=== PATIENT | male | born 1940 | race African-American/Black ===

== ENCOUNTER 2018-04-15 11:02 | Emergency (ER) | payer MEDICARE ==
[~2018-04-15] VITALS: Ht 170.2 cm; Wt 64.0 kg
[~2018-04-15 11:02] MED LIST: METF-414 PO; ROSU10TA PO
[2018-04-15] MEDS ORDERED: NAPROXEN 375MG TABLET PO ONE (11:45)
[2018-04-15 13:40] VITALS: BP 143/73
== END 2018-04-15 14:19 | disposition home or self-care (01) ==
LOC: ER 11:57
DX: M17.0 Bilateral primary osteoarthritis of knee (principal); I10 Essential (primary) hypertension; Z88.5 Allergy status to narcotic agent; M11.261 Other chondrocalcinosis, right knee
CPT/HCPCS: 73560; 99284

== ENCOUNTER → 2020-04-14 | Outpatient (CLI) | payer MEDICARE ==
[~2020-04-14] MED LIST changes: +ASPI-1497 PO; +CRES10 PO; +GLIP5TAB12 PO; +LATA2.5D2 EACHEYE; +METF-414 MT; +METF750T46 MT; -ROSU10TA PO; +TIMO5DRO32 EACHEYE
== END | disposition home or self-care (01) ==
LOC: LAB 09:19
PROVIDERS: ATTEND Specialist
DX: Z01.812 Encounter for preprocedural laboratory examination (principal); R05 Cough; Z20.828 Contact with and (suspected) exposure to other viral communicable diseases
CPT/HCPCS: C9803; U0003

== ENCOUNTER 2020-04-15 06:09 | Day surgery (SDC) | payer MEDICARE ==
[~2020-04-15 06:09] MED LIST changes: -ASPI-1497 PO; -GLIP5TAB12 PO; -LATA2.5D2 EACHEYE; -METF-414 MT; -METF750T46 MT; -TIMO5DRO32 EACHEYE
[2020-04-15] MEDS ORDERED: GLIP5TAB12 PO (07:48)
[2020-04-15] MEDS ORDERED: METF750T46 MT (07:48)
[2020-04-15] MEDS ORDERED: ASPI-1497 PO (07:48)
[2020-04-15] MEDS ORDERED: METF-414 MT (07:48)
[2020-04-15] MEDS ORDERED: TIMO5DRO32 EACHEYE (07:49)
[2020-04-15] MEDS ORDERED: LATA2.5D2 EACHEYE (07:49)
[2020-04-15] MEDS ORDERED: ASPIRIN/SOD BICARB/CITRIC ACID 324MG TAB EFF ONE (08:52)
[2020-04-15] MEDS ORDERED: LIDOCAINE HCL 1% 20ML VIAL (Pyxis) INJ ONE (08:53)
[2020-04-15] MEDS ORDERED: MIDAZOLAM HCL 2 MG/2 ML VIAL ONE (08:54)
[2020-04-15] MEDS ORDERED: FENTANYL CITRATE/PF 50MCG/ML 2ML VIAL ONE (08:54)
[2020-04-15] MEDS ORDERED: IODIXANOL 320MG/ML 100 ML BOTTLE IV ONE (08:54)
[2020-04-15] MEDS ORDERED: ACETAMINOPHEN 325MG TABLET PO PRN (10:30)
[2020-04-15] MEDS ORDERED: ATROPINE SULFATE 1MG/10ML SYR IV PRN (10:30)
[2020-04-15] MEDS ORDERED: ONDANSETRON HCL 4MG/2ML INJ IV PRN (10:30)
[2020-04-15] MEDS ORDERED: MORPHINE SULFATE 2 MG/ML CPJ (NOT FOR IM USE) IV PRN (10:30)
[2020-04-15] MEDS ORDERED: HEPARIN SODIUM 1,000 UNIT/1ML VIAL IV ONE (12:00)
[2020-04-15] MEDS ORDERED: NITROGLYCERIN 50MCG/ML 10ML VIAL (CATH LAB) IV ONE (12:00)
[2020-04-15] MEDS ORDERED: NICARDIPINE 100MCG/ML 10ML VIAL (CATH LAB) IV ONE (12:00)
[2020-04-15] MEDS ORDERED: AMLODIPINE 2.5MG TABLET PO NR (13:15)
== END 2020-04-15 15:30 | disposition home or self-care (01) ==
LOC: CCL 06:09
PROVIDERS: ATTEND Specialist
DX: I25.10 Atherosclerotic heart disease of native coronary artery without angina pectoris (principal); I10 Essential (primary) hypertension; E78.5 Hyperlipidemia, unspecified; E11.9 Type 2 diabetes mellitus without complications; Z79.82 Long term (current) use of aspirin; Z79.84 Long term (current) use of oral hypoglycemic drugs; Z79.899 Other long term (current) drug therapy; Z98.890 Other specified postprocedural states
CPT/HCPCS: 82962; 93458; C1769; C1887; C1893; J1644; J2250; J3010; J3490; Q9967; 99152; 99153; G0500

== ENCOUNTER 2021-07-10 12:00 | Inpatient (IN) | payer MEDICARE ==
[~2021-07-10] VITALS: Ht 170.2 cm; Wt 66.7 kg
[~2021-07-10 12:00] MED LIST changes: +ASPI-1497 PO; +GLIP5TAB12 PO; +LATA2.5D14 EACHEYE; +METF-414 MT; +METF750T46 MT; +TIMO5DRO32 EACHEYE
[2021-07-10 13:16] LABS: BASOPHILS % 1.2 % (0.0-2.0); EOSINOPHILS % 6.9 % (0.0-5.0); HEMATOCRIT. 22.5 % (42.0-52.0); HEMOGLOBIN. 7.4 g/dL (14.0-18.0); LYMPHOCYTES % 21.4 % (20.0-50.0); MEAN CORPUSCULAR HEMOGLOBIN 27.3 pg (28.0-32.0); MEAN CORPUSCULAR VOLUME 83.5 fL (80.0-94.0); MEAN PLATELET VOLUME 6.8 fl (7.4-10.4); MONOCYTES % 14.7 % (2.0-8.0); NEUTROPHILS % 55.8 % (40.0-76.0); PLATELET 323 x1000/uL (130-400); RED CELL DISTRIBUTION WIDTH 15.7 % (11.6-14.6)
[2021-07-10 13:20] LABS: CHLORIDE 108 mEq/L (98-107)
[2021-07-10 13:24] LABS: PROTHROMBIN TIME 10.8 sec (9.6-11.0)
[2021-07-10 13:29] LABS: TOTAL IRON BINDING CAPACITY 408 ug/dL (250-450)
[2021-07-10] MEDS ORDERED: VENOFER XX SCH (15:00)
[2021-07-10] MEDS ORDERED: PANTOPRAZOLE SODIUM 40 MG/VIAL IV ONE (15:45)
[2021-07-10] MEDS ORDERED: SODIUM CHLORIDE 0.9% 500 ML IV ONE (15:45)
[2021-07-10 16:40] LABS: CREATINE KINASE 210 IU/L (39-308)
[2021-07-10 16:41] LABS: CREATINE KINASE MB FRACTION 1.9 ng/mL (0.5-3.6)
[2021-07-10 16:51] LABS: FOLIC ACID (FOLATE) SERUM 15.9 ng/mL (>5.38)
[2021-07-10] MEDS: PANTOPRAZOLE SODIUM 40 MG/VIAL IV SCH ×2 (16:52→21:00)
[2021-07-10] MEDS: IRON SUCROSE COMPLEX 100 MG/5 ML ML IV SCH (16:53)
[2021-07-10] MEDS: EPOETIN ALFA-EPBX 10,000 UNIT/ML VIAL SUBCUT SCH (21:00)
[2021-07-10 22:45] LABS: CLARITY URINE CLEAR (CLEAR); COLOR URINE YELLOW (YELLOW); KETONES URINE NEGATIVE (NEGATIVE); LEUKOCYTE ESTERASE URINE 3+ (NEGATIVE); NITRITE URINE NEGATIVE (NEGATIVE); OCCULT BLOOD URINE NEGATIVE (NEGATIVE); PH URINE 6.5 (4.5-8.0); PROTEIN URINE NEGATIVE (NEGATIVE); SPECIFIC GRAVITY URINE 1.009 (1.005-1.030); UROBILINOGEN URINE 0.2 E.U./dL (0.2-1.0)
[2021-07-11 05:07] LABS: MEAN CORPUSCULAR HEMOGLOBIN 28.2 pg (28.0-32.0); MEAN CORPUSCULAR VOLUME 83.2 fL (80.0-94.0); MEAN PLATELET VOLUME 7.3 fl (7.4-10.4); PLATELET 285 x1000/uL (130-400); RED BLOOD CELL COUNT 2.37 mill/uL (4.7-6.1); RED CELL DISTRIBUTION WIDTH 15.8 % (11.6-14.6)
[2021-07-11 05:24] LABS: HEMOGLOBIN. 6.7 g/dL (14.0-18.0)
[2021-07-11 05:25] LABS: HEMATOCRIT. 19.7 % (42.0-52.0)
[2021-07-11] MEDS ORDERED: AMLO5TAB88 MT (06:44)
[2021-07-11] MEDS ORDERED: PIOG15TA68 MT (06:44)
[2021-07-11] MEDS ORDERED: CLOP75TA33 MT (06:44)
[2021-07-11] MEDS ORDERED: ATOR80TA MT (06:44)
[2021-07-11] MEDS ORDERED: METO-396 MT (06:44)
[2021-07-11] MEDS ORDERED: GLIP5TAB12 MT (06:44)
[2021-07-11] MEDS ORDERED: [UNRECOGNIZED DRUG - OTHER] PO (06:44)
[2021-07-11] MEDS ORDERED: METF-415 MT (06:44)
[2021-07-11 07:00] VITALS: BP 127/52
[2021-07-11 07:27] LABS: PLATELET ESTIMATE NORMAL
[2021-07-11 08:00] VITALS: BP 127/52
[2021-07-11] MEDS: IRON SUCROSE COMPLEX 100 MG/5 ML ML IV SCH (09:37)
[2021-07-11] MEDS: PANTOPRAZOLE SODIUM 40 MG/VIAL IV SCH ×2 (09:37→17:00)
[2021-07-11 12:00] VITALS: BP 147/60
[2021-07-11] MEDS ORDERED: ACETAMINOPHEN 650MG SUPP PR PRN (12:00)
[2021-07-11] MEDS ORDERED: DIPHENHYDRAMINE 50MG/ML VIAL IV PRN (12:00)
[2021-07-11] MEDS ORDERED: LORAZEPAM 2MG/ML CPJ IV PRN (12:00)
[2021-07-11] MEDS ORDERED: ACETAMINOPHEN 325MG TABLET PO PRN (12:00)
[2021-07-11] MEDS ORDERED: BISACODYL 10MG SUPP PR PRN (12:00)
[2021-07-11] MEDS ORDERED: DEXTROSE 50% WATER 50ML SYRINGE IV PRN (12:00)
[2021-07-11] MEDS ORDERED: IPRATROPIUM/ALBUTEROL 0.5-3(2.5)MG/3ML NEB HHN PRN (12:00)
[2021-07-11] MEDS: BLOOD SUGAR DIAGNOSTIC STRIP TEST SCH ×3 (13:07→21:44)
[2021-07-11] MEDS: INSULIN LISPRO 100 UNITS/ML SUBCUT SCH ×3 (13:30→21:43)
[2021-07-11] MEDS: CEFTRIAXONE 1,000 MG in DEXTROSE 5% WATER 50 ML IV SCH (15:10)
[2021-07-11 16:00] VITALS: BP 143/62
[2021-07-11 20:00] VITALS: BP 110/62
[2021-07-11] MEDS: EPOETIN ALFA-EPBX 10,000 UNIT/ML VIAL SUBCUT SCH (21:43)
[2021-07-12] VITALS: BP 103/52
[2021-07-12 04:00] VITALS: BP 132/60
[2021-07-12] MEDS: BLOOD SUGAR DIAGNOSTIC STRIP TEST SCH ×4 (07:20→21:44)
[2021-07-12] MEDS: INSULIN LISPRO 100 UNITS/ML SUBCUT SCH ×4 (07:50→21:00)
[2021-07-12 07:51] LABS: BASOPHILS % 1.3 % (0.0-2.0); EOSINOPHILS % 6.2 % (0.0-5.0); LYMPHOCYTES % 15.1 % (20.0-50.0); MEAN CORPUSCULAR HEMOGLOBIN 27.3 pg (28.0-32.0); MEAN CORPUSCULAR VOLUME 83.8 fL (80.0-94.0); MEAN PLATELET VOLUME 7.2 fl (7.4-10.4); MONOCYTES % 14.8 % (2.0-8.0); NEUTROPHILS % 62.6 % (40.0-76.0); PLATELET 315 x1000/uL (130-400); RED BLOOD CELL COUNT 2.42 mill/uL (4.7-6.1); RED CELL DISTRIBUTION WIDTH 15.5 % (11.6-14.6)
[2021-07-12 08:00] VITALS: BP 131/52
[2021-07-12 08:09] LABS: HEMOGLOBIN. 6.6 g/dL (14.0-18.0)
[2021-07-12 08:10] LABS: HEMATOCRIT. 20.3 % (42.0-52.0)
[2021-07-12] MEDS: PANTOPRAZOLE SODIUM 40 MG/VIAL IV SCH ×2 (09:24→17:00)
[2021-07-12] MEDS: BISACODYL 5MG TABLET PO SCH (09:24)
[2021-07-12] MEDS: IRON SUCROSE COMPLEX 100 MG/5 ML ML IV SCH (09:24)
[2021-07-12] MEDS: SORBITOL 70% SOLN 30ML PO SCH (09:25)
[2021-07-12] MEDS: NA PHOS,M-B/NA PHOS,DI-BA ENEMA 118ML PR SCH ×2 (10:32→18:31)
[2021-07-12] MEDS: AMLODIPINE 5MG TABLET PO SCH (15:40)
[2021-07-12] MEDS: CEFTRIAXONE 1,000 MG in DEXTROSE 5% WATER 50 ML IV SCH (15:41)
[2021-07-12 20:18] VITALS: BP 130/64
[2021-07-12] MEDS: EPOETIN ALFA-EPBX 10,000 UNIT/ML VIAL SUBCUT SCH (21:44)
[2021-07-13 00:48] VITALS: BP 105/44
[2021-07-13 04:20] VITALS: BP 126/61
[2021-07-13 06:58] LABS: HEMATOCRIT. 23.6 % (42.0-52.0); HEMOGLOBIN. 7.9 g/dL (14.0-18.0); MEAN CORPUSCULAR HEMOGLOBIN 28.2 pg (28.0-32.0); MEAN CORPUSCULAR VOLUME 83.8 fL (80.0-94.0); MEAN PLATELET VOLUME 7.4 fl (7.4-10.4); PLATELET 355 x1000/uL (130-400); RED BLOOD CELL COUNT 2.82 mill/uL (4.7-6.1); RED CELL DISTRIBUTION WIDTH 15.7 % (11.6-14.6)
[2021-07-13] MEDS: INSULIN LISPRO 100 UNITS/ML SUBCUT SCH ×4 (07:50→21:23)
[2021-07-13 07:53] LABS: PLATELET ESTIMATE NORMAL
[2021-07-13 08:00] VITALS: BP 131/62
[2021-07-13] MEDS: BISACODYL 5MG TABLET PO SCH (09:30)
[2021-07-13] MEDS: PANTOPRAZOLE SODIUM 40 MG/VIAL IV SCH ×2 (09:31→17:56)
[2021-07-13] MEDS: SORBITOL 70% SOLN 30ML PO SCH ×2 (09:31→20:54)
[2021-07-13] MEDS: AMLODIPINE 5MG TABLET PO SCH ×2 (09:31→17:00)
[2021-07-13] MEDS ORDERED: LATA2.5D14 EACHEYE (09:47)
[2021-07-13] MEDS ORDERED: DORZ10DR12 EACHEYE (09:47)
[2021-07-13] MEDS: NA PHOS,M-B/NA PHOS,DI-BA ENEMA 118ML PR SCH ×2 (10:01→17:56)
[2021-07-13] MEDS ORDERED: TAMSULOSIN HCL 0.4MG SR CAPSULE PO NR (10:15)
[2021-07-13 12:00] VITALS: BP 125/60
[2021-07-13] MEDS: BLOOD SUGAR DIAGNOSTIC STRIP TEST SCH ×3 (12:41→20:55)
[2021-07-13] MEDS ORDERED: BISACODYL 10MG SUPP PR SCH (13:45)
[2021-07-13 14:04] LABS: PROSTRATE SPECIFIC AG TOTAL 3.05 ng/mL (0.0-4.0)
[2021-07-13] MEDS: CEFTRIAXONE 1,000 MG in DEXTROSE 5% WATER 50 ML IV SCH (14:37)
[2021-07-13 14:48] LABS: TOTAL IRON BINDING CAPACITY 395 ug/dL (250-450)
[2021-07-13 16:00] VITALS: BP 106/58
[2021-07-13 20:00] VITALS: BP 122/69
[2021-07-13] MEDS: LATANOPROST 0.005% OPHTH DROPS 2.5ML BOTHEYE SCH (20:54)
[2021-07-13] MEDS: DORZOLAM/TIMOLOL 2.23/0.68% OPHTH DROPS 10ML BOTHEYE SCH (20:54)
[2021-07-13] MEDS: EPOETIN ALFA-EPBX 10,000 UNIT/ML VIAL SUBCUT SCH (21:15)
[2021-07-14] VITALS: BP 130/72
[2021-07-14 04:00] VITALS: BP 140/63
[2021-07-14] MEDS: SORBITOL 70% SOLN 30ML PO SCH ×2 (05:33→09:23)
[2021-07-14] MEDS: BLOOD SUGAR DIAGNOSTIC STRIP TEST SCH ×4 (07:25→18:20)
[2021-07-14] MEDS: INSULIN LISPRO 100 UNITS/ML SUBCUT SCH ×4 (07:25→21:00)
[2021-07-14 08:00] VITALS: BP 141/69
[2021-07-14] MEDS: NA PHOS,M-B/NA PHOS,DI-BA ENEMA 118ML PR SCH ×2 (09:00→17:00)
[2021-07-14] MEDS: BISACODYL 5MG TABLET PO SCH (09:00)
[2021-07-14] MEDS: TAMSULOSIN HCL 0.4MG SR CAPSULE PO SCH (09:00)
[2021-07-14] MEDS: PANTOPRAZOLE SODIUM 40 MG/VIAL IV SCH ×2 (09:23→17:00)
[2021-07-14] MEDS: AMLODIPINE 5MG TABLET PO SCH ×2 (09:23→17:00)
[2021-07-14] MEDS: DORZOLAM/TIMOLOL 2.23/0.68% OPHTH DROPS 10ML BOTHEYE SCH ×2 (09:23→20:52)
[2021-07-14 12:00] VITALS: BP 129/62
[2021-07-14] MEDS: CEFTRIAXONE 1,000 MG in DEXTROSE 5% WATER 50 ML IV SCH (13:38)
[2021-07-14 14:11] LABS: HEMATOCRIT. 27.3 % (42.0-52.0); HEMOGLOBIN. 8.8 g/dL (14.0-18.0); MEAN CORPUSCULAR HEMOGLOBIN 27.7 pg (28.0-32.0); MEAN PLATELET VOLUME 6.8 fl (7.4-10.4); PLATELET 375 x1000/uL (130-400); RED BLOOD CELL COUNT 3.17 mill/uL (4.7-6.1); RED CELL DISTRIBUTION WIDTH 15.9 % (11.6-14.6)
[2021-07-14 14:20] LABS: CHLORIDE 117 mEq/L (98-107)
[2021-07-14 14:30] LABS: PROTHROMBIN TIME 11.1 sec (9.6-11.0)
[2021-07-14 15:06] LABS: NUCLEATED RED BLOOD CELLS 2 /100 WBC; PLATELET ESTIMATE NORMAL
[2021-07-14 16:00] VITALS: BP 109/56
[2021-07-14] MEDS ORDERED: MIDAZOLAM HCL 2 MG/2 ML VIAL ONE (17:17)
[2021-07-14] MEDS ORDERED: PROPOFOL 200MG/20ML VIAL IV ONE ×2 (17:18→17:52)
[2021-07-14] MEDS ORDERED: LIDOCAINE HCL/PF 1% 10 MG/ML 5ML VIAL ONE (17:18)
[2021-07-14 20:00] VITALS: BP 154/56
[2021-07-14] MEDS: LATANOPROST 0.005% OPHTH DROPS 2.5ML BOTHEYE SCH (20:53)
[2021-07-14] MEDS: EPOETIN ALFA-EPBX 10,000 UNIT/ML VIAL SUBCUT SCH (20:54)
[2021-07-15] VITALS: BP 121/53
[2021-07-15 04:00] VITALS: BP 151/54
[2021-07-15 07:22] LABS: BASOPHILS % 0.3 % (0.0-2.0); EOSINOPHILS % 2.4 % (0.0-5.0); HEMATOCRIT. 23.4 % (42.0-52.0); HEMOGLOBIN. 7.5 g/dL (14.0-18.0); MEAN CORPUSCULAR HEMOGLOBIN 27.7 pg (28.0-32.0); MEAN CORPUSCULAR VOLUME 86.2 fL (80.0-94.0); MEAN PLATELET VOLUME 7.3 fl (7.4-10.4); MONOCYTES % 13.3 % (2.0-8.0); PLATELET 325 x1000/uL (130-400); RED BLOOD CELL COUNT 2.71 mill/uL (4.7-6.1); RED CELL DISTRIBUTION WIDTH 15.9 % (11.6-14.6)
[2021-07-15] MEDS: BLOOD SUGAR DIAGNOSTIC STRIP TEST SCH ×4 (07:24→21:36)
[2021-07-15] MEDS: INSULIN LISPRO 100 UNITS/ML SUBCUT SCH ×4 (07:24→21:44)
[2021-07-15 08:00] VITALS: BP 145/64
[2021-07-15] MEDS: PANTOPRAZOLE SODIUM 40 MG/VIAL IV SCH ×2 (08:56→17:27)
[2021-07-15] MEDS: DORZOLAM/TIMOLOL 2.23/0.68% OPHTH DROPS 10ML BOTHEYE SCH ×2 (08:56→21:35)
[2021-07-15] MEDS: SORBITOL 70% SOLN 30ML PO SCH (08:56)
[2021-07-15] MEDS: TAMSULOSIN HCL 0.4MG SR CAPSULE PO SCH (08:58)
[2021-07-15] MEDS: NA PHOS,M-B/NA PHOS,DI-BA ENEMA 118ML PR SCH ×2 (08:59→17:00)
[2021-07-15] MEDS: BISACODYL 5MG TABLET PO SCH (08:59)
[2021-07-15] MEDS: AMLODIPINE 5MG TABLET PO SCH ×2 (08:59→17:00)
[2021-07-15] MEDS: ASPIRIN 81MG EC TABLET PO SCH (09:30)
[2021-07-15] MEDS: SODIUM CHL 0.45% + KCL 20MEQ/L 1,000 ML IV SCH (10:19)
[2021-07-15] MEDS: SULFAMETHOXAZOLE/TRIMETHOPRIM 400/80MG TAB PO SCH ×2 (11:55→21:35)
[2021-07-15 12:00] VITALS: BP 129/53
[2021-07-15 12:32] LABS: TOTAL IRON BINDING CAPACITY 351 ug/dL (250-450)
[2021-07-15 16:00] VITALS: BP 94/74
[2021-07-15] MEDS: FERROUS SULFATE 300MG/5ML UDC PO SCH (17:27)
[2021-07-15] MEDS: METFORMIN HCL 500MG TABLET PO SCH (17:28)
[2021-07-15 20:43] VITALS: BP 119/54
[2021-07-15] MEDS: EPOETIN ALFA-EPBX 10,000 UNIT/ML VIAL SUBCUT SCH (21:35)
[2021-07-15] MEDS: LATANOPROST 0.005% OPHTH DROPS 2.5ML BOTHEYE SCH (21:35)
[2021-07-16] VITALS: BP 147/64
[2021-07-16] MEDS: SODIUM CHL 0.45% + KCL 20MEQ/L 1,000 ML IV SCH ×2 (00:22→12:40)
[2021-07-16 04:00] VITALS: BP 121/63
[2021-07-16] MEDS: BLOOD SUGAR DIAGNOSTIC STRIP TEST SCH ×2 (07:03→12:31)
[2021-07-16] MEDS: INSULIN LISPRO 100 UNITS/ML SUBCUT SCH ×2 (07:50→13:16)
[2021-07-16 08:58] LABS: BASOPHILS % 1.1 % (0.0-2.0); EOSINOPHILS % 5.2 % (0.0-5.0); HEMATOCRIT. 23.5 % (42.0-52.0); LYMPHOCYTES % 15.4 % (20.0-50.0); MEAN CORPUSCULAR HEMOGLOBIN 29.1 pg (28.0-32.0); MEAN CORPUSCULAR VOLUME 85.2 fL (80.0-94.0); MEAN PLATELET VOLUME 7.1 fl (7.4-10.4); MONOCYTES % 11.4 % (2.0-8.0); NEUTROPHILS % 66.9 % (40.0-76.0); PLATELET 331 x1000/uL (130-400); RED BLOOD CELL COUNT 2.75 mill/uL (4.7-6.1); RED CELL DISTRIBUTION WIDTH 16.2 % (11.6-14.6)
[2021-07-16] MEDS: NA PHOS,M-B/NA PHOS,DI-BA ENEMA 118ML PR SCH (09:00)
[2021-07-16] MEDS ORDERED: FINASTERIDE 5MG TABLET PO SCH (09:00)
[2021-07-16 09:10] LABS: KAPPA/LAMBDA RATIO 1.36 (0.26-1.65); LAMBDA LT CHAINS FREE SERUM 33.8 mg/L (5.7-26.3)
[2021-07-16] MEDS: FERROUS SULFATE 300MG/5ML UDC PO SCH ×2 (09:19→13:12)
[2021-07-16] MEDS: DORZOLAM/TIMOLOL 2.23/0.68% OPHTH DROPS 10ML BOTHEYE SCH (09:27)
[2021-07-16] MEDS: BISACODYL 5MG TABLET PO SCH (09:27)
[2021-07-16] MEDS: PANTOPRAZOLE SODIUM 40 MG/VIAL IV SCH (09:27)
[2021-07-16] MEDS: AMLODIPINE 5MG TABLET PO SCH (09:34)
[2021-07-16] MEDS: ASPIRIN 81MG EC TABLET PO SCH (09:34)
[2021-07-16] MEDS: SULFAMETHOXAZOLE/TRIMETHOPRIM 400/80MG TAB PO SCH (09:34)
[2021-07-16] MEDS: METFORMIN HCL 500MG TABLET PO SCH (09:34)
[2021-07-16] MEDS: TAMSULOSIN HCL 0.4MG SR CAPSULE PO SCH (09:35)
[2021-07-16] MEDS: SORBITOL 70% SOLN 30ML PO SCH (09:37)
[2021-07-16] MEDS ORDERED: FE300LUD PO (09:47)
[2021-07-16] MEDS ORDERED: PANT40TA51 MT ×2 (09:47→09:48)
[2021-07-16] MEDS ORDERED: XALAO BOTHEYE (09:47)
[2021-07-16] MEDS ORDERED: AMLO5TAB88 PO (09:47)
[2021-07-16] MEDS ORDERED: DORZ10DR12 BOTHEYE (09:47)
[2021-07-16] MEDS ORDERED: SULF-292 PO (09:47)
[2021-07-16] MEDS ORDERED: FINA5TAB11 PO (09:47)
[2021-07-16] MEDS ORDERED: ASPI-1406 PO (09:47)
[2021-07-16] MEDS ORDERED: TAMS-11 PO (09:47)
[2021-07-16] MEDS ORDERED: DOCU250C69 MT (09:48)
[2021-07-16 12:52] VITALS: BP 141/66
[2021-07-16 14:06] VITALS: BP 144/63
[2021-07-17 08:12] LABS: IMMUNOGLOBULIN A 424 mg/dL (61-437); IMMUNOGLOBULIN G 1632 mg/dL (603-1613); IMMUNOGLOBULIN M 28 mg/dL (15-143)
[2021-07-17 09:06] LABS: A/G RATIO 0.8 (0.7-1.7); ALBUMIN 3.3 g/dL (2.9-4.4); ALPHA-1-GLOBULIN 0.3 g/dL (0.0-0.4); BETA GLOBULIN 1.4 g/dL (0.7-1.3); GAMMA GLOBULINS 1.7 g/dL (0.4-1.8); GLOBULIN TOTAL 4.4 g/dL (2.2-3.9); M-SPIKE 0.5 g/dL (Not Observed); TOTAL PROTEIN SERUM 7.7 g/dL (6.0-8.5)
== END 2021-07-16 15:25 | disposition home or self-care (01) | DRG 378 ==
LOC: ER 12:00 → MICUSO 14:04 → EDBEDREQ 14:21 → EDBEDREQTM 14:21 → 6EST 07-11 06:40
PROVIDERS: ADMIT Internal Medicine Geriatric Medicine; ATTEND Internal Medicine Geriatric Medicine
PROC: 0DB78ZX Excision of Stomach, Pylorus, Via Natural or Artificial Opening Endoscopic, Diagnostic (ICD-10-PCS; principal; 2021-07-14)
PROC: 0DJD8ZZ Inspection of Lower Intestinal Tract, Via Natural or Artificial Opening Endoscopic (ICD-10-PCS; 2021-07-14)
DX: K29.71 Gastritis, unspecified, with bleeding (principal); N39.0 Urinary tract infection, site not specified; I31.3 Pericardial effusion (noninflammatory); K57.91 Diverticulosis of intestine, part unspecified, without perforation or abscess with bleeding; I25.10 Atherosclerotic heart disease of native coronary artery without angina pectoris; E11.51 Type 2 diabetes mellitus with diabetic peripheral angiopathy without gangrene; E78.5 Hyperlipidemia, unspecified; K56.41 Fecal impaction; N18.9 Chronic kidney disease, unspecified; E78.00 Pure hypercholesterolemia, unspecified; M19.90 Unspecified osteoarthritis, unspecified site; I35.2 Nonrheumatic aortic (valve) stenosis with insufficiency; K64.8 Other hemorrhoids; I27.20 Pulmonary hypertension, unspecified; D72.825 Bandemia; R33.8 Other retention of urine; Z20.822 Contact with and (suspected) exposure to COVID-19; I12.9 Hypertensive chronic kidney disease with stage 1 through stage 4 chronic kidney disease, or unspecified chronic kidney disease; E11.22 Type 2 diabetes mellitus with diabetic chronic kidney disease; N40.1 Benign prostatic hyperplasia with lower urinary tract symptoms; N32.89 Other specified disorders of bladder; B95.8 Unspecified staphylococcus as the cause of diseases classified elsewhere; D50.0 Iron deficiency anemia secondary to blood loss (chronic); Z95.2 Presence of prosthetic heart valve; Z95.5 Presence of coronary angioplasty implant and graft; Z88.5 Allergy status to narcotic agent; Z88.8 Allergy status to other drugs, medicaments and biological substances; Z79.82 Long term (current) use of aspirin; Z79.899 Other long term (current) drug therapy; Z79.84 Long term (current) use of oral hypoglycemic drugs; Z79.02 Long term (current) use of antithrombotics/antiplatelets; H40.9 Unspecified glaucoma; E11.69 Type 2 diabetes mellitus with other specified complication; N13.9 Obstructive and reflux uropathy, unspecified
CPT/HCPCS: 36415; 71045; 71250; 74176; 76770; 80048; 80053; 81003; 82270; 82378; 82550; 82553; 82607; 82728; 82746; 82784; 82962; 83010; 83036; 83540; 83550; 83615; 83735; 83880; 83883; 84153; 84155; 84165; 84443; 84484; 85025; 85044; 86301; 86334; 86850; 86880; 86900; 87077; 87186; 87426; 88305; 88312; 88313; 93005; 93306; 93970; 97161; 97165; 99285; C9113; J0696; J0885; J1815; J2250; J2704; J3480; J3490; J7040; J7060; A4315; G0103